=== PATIENT | male | born 1990 | race Caucasian/White ===

== ENCOUNTER 2017-02-06 12:47 | Observation (INO) | payer SELFPAY ==
[2017-02-06] MEDS ORDERED: Sodium Chloride 0.9% 10 ML Syringe FLUSH PRN (13:11)
[2017-02-06] MEDS ORDERED: Clindamycin Phosphate 900 MG in Sodium Chloride 0.9% 100 ML IV ONE (13:39)
[2017-02-06] MEDS ORDERED: Ciprofloxacin in D5W 400 MG in Premix Bag 1 BAG IV ONE ×2 (13:42)
[2017-02-06 13:59] LABS: CHLORIDE,CL 104 mmol/L (98-107); SODIUM,NA 141 mmol/L (136-145)
[2017-02-06] MEDS ORDERED: HYDROmorphone 1 MG/ML Syringe IVPUSH ONE (14:55)
[2017-02-06] MEDS ORDERED: Sodium Chloride 0.9% 1,000 ML IV ONE (16:18)
[2017-02-06] MEDS: Acetaminophen/HYDROcodone 325-10 MG Tab PO PRN ×2 (18:23→23:48)
--- NOTE | 2017-02-06 18:30 | ER ---
Date of Service: 02/06/2017 This may be used as the patient's admission H and P. SUBJECTIVE: Sergio presents to the emergency room with complaints of pain and swelling to the right side of his face. The patient states that he attempted to remove or open a small abscess or lesion to his right lower inferior mandible and states that since that time he has been experiencing gradual increase in pain and edema to the area. He states that initially again it was located on the right lower mandibular area, but now extends into his right anterior lateral neck and up into his right cheek area and extending into the right nasolabial fold. He states that he is not experiencing any chest pain or shortness of breath and states that he is able to swallow without difficulty. He does complain of some increased trismus due to discomfort. The patient states that he has no history of MRSA. He states that his mother told he had a "cardiac arrest" when he was given Augmentin as an infant. PAST MEDICAL HISTORY: Denies. MEDICATIONS: None. ALLERGIES: To Augmentin. REVIEW OF SYSTEMS: General: Denies any significant fever or chills. HEENT: Please see history of present illness. No difficulties with swallowing or managing his secretions. Respiratory: No shortness of breath. Cardiac: Denies any substernal chest pain. No jaw, arm, neck, or back pain. GI: No nausea, vomiting, or diarrhea. No melena, hematochezia, or hematemesis. : Denies any dysuria. Musculoskeletal: No myalgias or arthralgias. Neurologic: No fainting, blackouts, or lightheadedness. Denies any numbness or tingling in his extremities. PHYSICAL EXAMINATION: General: This is a 26-year-old male patient, who is in mild to moderate amount of distress. Vital Signs: Heart rate is 104, temp is 36.8, blood pressure is 140/65, respiratory rate is 16, O2 saturations 100% on room air. Skin: Warm, pink, and dry. HEENT: Head is normocephalic, atraumatic. Eyes, PERRLA. Extraocular movements are intact. Ears, TMs are clear. Face, he does have evidence of swelling to the right side of his face. The largest portion of the lesion is located in the area of the body of the right mandible anterior to the mandibular arch. There is some open areas where the patient has been attempting to express material from the lesion. The edema extends up into his right buccal area to approximately the level of the right nasolabial fold. There is a scant small amount of edema extending into the right anterior lateral neck with some mild cellulitis. Examination of the patient's hypopharynx does not reveal any retropharyngeal swelling or swelling to the tongue or oral mucosa. There does appear to be some induration of the platysma particularly on the right. Neck: He does have prominent anterior and posterior cervical lymph nodes on the right. Lungs: Clear to auscultation. Heart: Regular rate and rhythm. Abdomen: Soft, nontender. There is no hepatosplenomegaly noted. There are no masses noted. Extremities: Without edema. Neurologic: The patient is alert, oriented, answers all questions appropriately. His speech is fluent. His gait is within normal limits. I. LABORATORY DATA: WBC is 12.6, hemoglobin is 16.1. Coags; PT is 10.3 and INR is 1.0. Chemistry; sodium is 141, potassium is 4.5, chloride is 104, bicarb is 29, BUN is 14, creatinine is 1.1, creatinine clearance is 94.67. GFR is greater than 60. Glucose is 81, calcium is 9.2, corrected calcium is 9.28, total protein is 0.5. AST is 12, ALT is 18, AST is 74. C-reactive protein is 2.4, total protein is 7.6, albumin is 3.9. Blood cultures x2 were obtained and are pending. Also culture was taken of the mandibular lesion and results are pending. CT scan of the patient's soft tissue of his neck was obtained. 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 Kumar, the Radiologist at [facility]. EMERGENCY ROOM COURSE: IV access was established. He was given a liter of normal saline IV. I did consult with Dr. Vines, who was the Infectious Disease specialist on-call at [facility] in [place]. Given the patient's allergy to Augmentin, he advised starting the patient on vancomycin, clindamycin, and Cipro. Subsequently, the patient was started on vancomycin 1250 mg every 8 hours and clindamycin 900 mg every 8 hours. Also started him on Cipro 400 mg every 12 hours. He was given Dilaudid 1 mg IV. There was no expressible material coming from the abscess on initial examination. Subsequently, the abscess in the mandibular area was prepped and draped in the usual sterile fashion. The skin was cleansed with chlorhexidine. The skin was subsequently anesthetized with a total of 2 mL of 1% lidocaine. A #11 blade scalpel was used to make a small incision and approximately 10-15 mL of brown, foul-smelling purulent liquid was expressed from the abscess. The patient did tolerate this well. He remained stable in my care in the emergency room. To note, he was feeling somewhat nauseated, so he was also given Zofran 4 mg IV. ASSESSMENT: Cellulitis and abscess to right mandibular area with involvement of the submandibular platysma. PLAN: I did speak with Dr. Wiley, Ear, Nose, and Throat Specialist. He did review the images and felt that the patient could be admitted to our facility for IV antibiotics. Again we will have him start vancomycin dosed by the our pharmacy. Likely the dosage will be 1250 mg q.8 hours. Also will be clindamycin 900 mg every 8 hours and ciprofloxacin 400 mg twice daily. We will keep him on normal saline at 125 an hour. We will keep him on a mechanical soft diet. [place] 10/325 every 4 to 6 hours as needed for pain. Zofran 4 mg every 8 hours for nausea. We will re-evaluate often for involvement of the retropharyngeal area and problems with swallowing or managing his secretions which at this point, he is not having any issues with. The patient is a code level 1. MWK: 02/06/2017 17:18:00 MODL: 02/06/2017 18:22:30 /[id number]
[2017-02-06] MEDS: Nicotine 21 MG/24 Hr Patch TRDERM SCH (21:06)
[2017-02-06] MEDS ORDERED: Ondansetron 4 MG/2 ML SDV IVPUSH PRN (23:00)
[2017-02-06] MEDS: Clindamycin Phosphate 900 MG in Sodium Chloride 0.9% 100 ML IV SCH (23:51)
[2017-02-07] MEDS: Ciprofloxacin in D5W 400 MG in Premix Bag 1 BAG IV SCH ×4 (04:44→14:02)
[2017-02-07] MEDS: Clindamycin Phosphate 900 MG in Sodium Chloride 0.9% 100 ML IV SCH ×4 (04:47→23:05)
[2017-02-07] MEDS: Acetaminophen/HYDROcodone 325-10 MG Tab PO PRN ×4 (06:14→21:48)
[2017-02-07] MEDS: Sodium Chloride 0.9% 1,000 ML IV SCH ×2 (06:43→14:45)
[2017-02-07 07:11] LABS: CHLORIDE,CL 106 mmol/L (98-107); SODIUM,NA 141 mmol/L (136-145)
[2017-02-07] MEDS: Nicotine 21 MG/24 Hr Patch TRDERM SCH (08:59)
--- NOTE | 2017-02-07 11:42 | PCM.PN ---
- General Info Date of Service: 02/07/17 Admission Dx/Problem (Free Text): Patient admitted yesterday by Martínez Newman PA-c for IV antibiotic treatment for right mandibular abscess. Subjective Update: Patient reports feeling the same. States the swelling in his face initially got better, but has returned to where it was prior. Pain is better controlled. Functional Status: Reports: Pain Controlled, Tolerating Diet, Ambulating - Review of Systems General: Reports: No Symptoms HEENT: Reports: No Symptoms Pulmonary: Reports: No Symptoms Cardiovascular: Reports: No Symptoms Gastrointestinal: Reports: No Symptoms Genitourinary: Reports: No Symptoms Musculoskeletal: Reports: No Symptoms Skin: Reports: No Symptoms Neurological: Reports: No Symptoms Psychiatric: Reports: No Symptoms - Patient Data Vitals - Most Recent: Last Vital Signs Temp 37.2 C 02/07/17 10:00 Pulse 66 02/07/17 10:00 Resp 16 02/07/17 10:00 BP 115/57 L 02/07/17 10:00 Pulse Ox 100 02/07/17 10:00 Weight - Most Recent: 64.773 kg I&O - Last 24 Hours: Intake & Output 02/06/17 02/07/17 02/07/17 22:59 06:59 14:59 Intake Total 1963 1240 360 Balance 1963 1240 360 Lab Results Last 24 Hours: Laboratory Results - last 24 hr 02/07/17 02/07/17 Range/Units 06:26 06:26 WBC 8.7 (4.0-10.0) x10^3/uL RBC 4.55 (4.5-6.0) x10^6/uL Hgb 13.7 L D (14.0-18.0) g/dL Hct 40.7 (40.0-52.0) % MCV 89.5 D (78.0-93.0) fL MCH 30.1 (26.0-32.0) pg MCHC 33.7 (32.0-36.0) g/dL RDW Coeff of Michelle 14.2 (10.0-15.0) % Plt Count 261 (130-400) x10^3/uL Neut % (Auto) 55.7 (50.0-80.0) % Lymph % (Auto) 25.8 (25.0-50.0) % [place] % (Auto) 13.5 H (2.0-11.0) % Eos % (Auto) 4.0 (0.0-4.0) % Baso % (Auto) 1.0 (0.2-1.2) % Sodium 141 (136-145) mmol/L Potassium 4.6 (3.5-5.1) mmol/L Chloride 106 (98-107) mmol/L Carbon Dioxide 31 (21-32) mmol/L BUN 13 (7-18) mg/dL Creatinine 0.9 (0.70-1.30) mg/dL Est Cr Clr Drug Dosing 113.95 mL/min Estimated GFR (MDRD) > 60 Glucose 85 (74-106) mg/dL Calcium 8.1 L (8.5-10.1) mg/dL Corrected Calcium 8.90 (8.5-10.1) mg/dL Total Bilirubin 0.4 (0.2-1.0) mg/dL AST 23 (15-37) U/L ALT 30 (16-63) U/L Alkaline Phosphatase 65 (46-116) U/L C-Reactive Protein 3.3 H (<=0.9) mg/dL Total Protein 6.2 L (6.4-8.2) g/dL Albumin 3.0 L (3.4-5.0) g/dL Globulin 3.2 Albumin/Globulin Ratio 0.94 Med Orders - Current: Current Medications Hydrocodone Bitart/Acetaminophen ([place] 325-10 Mg) 1 tab PO Q4H PRN PRN Reason: Pain Last Admin: 02/07/17 11:19 Dose: 1 tab Ciprofloxacin/Dextrose 400 mg/ (Premix) 200 mls @ 200 mls/hr IV Q12H [facility] Last Admin: 02/07/17 04:44 Dose: 200 mls/hr Sodium Chloride (Normal Saline) 1,000 mls @ 125 mls/hr IV ASDIRECTED [facility] Last Admin: 02/07/17 06:43 Dose: 125 mls/hr Clindamycin Phosphate 900 mg/ (Sodium Chloride) 106 mls @ 200 mls/hr IV Q8HR [facility] Last Admin: 02/07/17 07:45 Dose: 200 mls/hr Vancomycin HCl 1,250 mg/ (Sodium Chloride) 250 mls @ 200 mls/hr IV Q8H [facility] Last Admin: 02/07/17 08:57 Dose: 200 mls/hr Nicotine (Habitrol) 21 mg TRDERM DAILY [facility] Last Admin: 02/07/17 08:59 Dose: Not Given Ondansetron HCl (Zofran) 4 mg IVPUSH Q8H PRN PRN Reason: Nausea Sodium Chloride (Saline Flush) 10 ml FLUSH ASDIRECTED PRN PRN Reason: Keep Vein Open Discontinued Medications Hydromorphone HCl (Dilaudid) 1 mg IVPUSH ONETIME ONE Stop: 02/06/17 14:56 Last Admin: 02/06/17 15:03 Dose: 1 mg Clindamycin Phosphate 900 mg/ (Sodium Chloride) 106 mls @ 200 mls/hr IV ONETIME ONE Stop: 02/06/17 14:10 Last Admin: 02/06/17 14:27 Dose: 200 mls/hr Vancomycin HCl 1,250 mg/ (Sodium Chloride) 250 mls @ 200 mls/hr IV ONETIME ONE Stop: 02/06/17 14:53 Last Admin: 02/06/17 15:09 Dose: 200 mls/hr Ciprofloxacin/Dextrose 400 mg/ (Premix) 200 mls @ 200 mls/hr IV ONETIME ONE Stop: 02/06/17 14:41 Last Admin: 02/06/17 16:54 Dose: 200 mls/hr Vancomycin HCl 1,250 mg/ (Sodium Chloride) 250 mls @ 200 mls/hr IV Q8HR [facility] Vancomycin HCl 1,250 mg/ (Sodium Chloride) 250 mls @ 200 mls/hr IV Q8H [facility] Last Admin: 02/07/17 04:46 Dose: 200 mls/hr Clindamycin Phosphate 900 mg/ (Sodium Chloride) 106 mls @ 200 mls/hr IV Q8HR [facility] Last Admin: 02/07/17 04:47 Dose: 200 mls/hr Sodium Chloride (Normal Saline) 1,000 mls @ 1,000 mls/hr IV .BOLUS ONE Stop: 02/06/17 17:17 Last Admin: 02/06/17 18:24 Dose: 1,000 mls/hr Lidocaine HCl (Xylocaine-Mpf 1%) 5 ml INJECT ONETIME ONE Stop: 02/06/17 13:14 Last Admin: 02/06/17 14:37 Dose: 5 ml - Exam General: Alert, Oriented, Cooperative HEENT: Pupils Equal, Pupils Reactive, EOMI Neck: Other (neck is edematous with cellulitis noted. bandaging is dry and intact) Lungs: Clear to Auscultation, Normal Respiratory Effort Cardiovascular: Regular Rate, Regular Rhythm GI/Abdominal Exam: Normal Bowel Sounds, Soft, Non-Tender, No Distention Extremities: Normal Inspection, Normal Range of Motion, Non-Tender, No Pedal Edema, Normal Capillary Refill Skin: Warm, Dry, Intact Wound/Incisions: Healing Well Neurological: No New Focal Deficit Psy/Mental Status: Alert, Normal Affect, Normal Mood - Problem List & Annotations (1) Cellulitis and abscess of face SNOMED Code(s): 598840311 Code(s): L03.211 - CELLULITIS OF FACE; L02.01 - CUTANEOUS ABSCESS OF FACE Status: Acute Priority: Medium Current Visit: Yes - Problem List Review Problem List Initiated/Reviewed/Updated: Yes - Assessment Assessment:: cellulities and abscess of right mandible - Plan Plan:: Continue IV antibiotic regimen of vancomycin, clindamycin, and ciprofloxacin until culture susceptibility is final, then narrow antibiotic regimen
[2017-02-08] MEDS: Ciprofloxacin in D5W 400 MG in Premix Bag 1 BAG IV SCH ×2 (02:01)
[2017-02-08] MEDS: Acetaminophen/HYDROcodone 325-10 MG Tab PO PRN ×3 (02:12→10:42)
[2017-02-08] MEDS: Clindamycin Phosphate 900 MG in Sodium Chloride 0.9% 100 ML IV SCH (07:36)
[2017-02-08] MEDS: Nicotine 21 MG/24 Hr Patch TRDERM SCH (07:36)
[2017-02-08 07:55] LABS: CHLORIDE,CL 104 mmol/L (98-107); SODIUM,NA 140 mmol/L (136-145)
--- NOTE | 2017-02-08 08:52 | PCM.DCSUM1 ---
Discharge Summary - Hospital Course HPI Initial Comments: Patient was admitted 2 days ago to the observation unit at [facility] for a right inferior mandibular skin abscess. Patient was placed on IV antibiotics given the extent of the skin abscess - Discharge Data Discharge Date: 02/08/17 Discharge Disposition: Home, Self-Care 01 Condition: Good - Discharge Diagnosis/Problem(s) (1) Cellulitis and abscess of face SNOMED Code(s): 119840436 ICD Code: L03.211 - CELLULITIS OF FACE; L02.01 - CUTANEOUS ABSCESS OF FACE Status: Acute Priority: Medium Current Visit: Yes Onset Date: ~02/06/17 - Patient Summary/Data Operative Procedure(s) Performed: None Labs Pending at D/C: None Hospital Course: Patient did well during his observation stay. The patient remained hemodynamically stable and afebrile. The patient tolerated IV antibiotics without any problem. The right posterior mandibular skin abscess is healing well. The iodoform gauze packing was removed today. We will leave this out and let the abscess drain on its own. The patient did not have any trouble with eating or drinking. The patient is urinating without any problems. No issues with bowel movements. The patient is ambulating without any assistance. - Patient Instructions Diet: Regular Diet as Tolerated Activity: No Strenuous Activities, Rest and Relax Today Driving: May Drive Today Showering/Bathing: May Shower Wound/Incision Care: Keep Operative Site/Wound Site Clean and Dry, Change Dressing Daily Notify Provider of: Fever, Increased Pain, Drainage - Discharge Plan Prescriptions/Med Rec: Ciprofloxacin HCl [Cipro] 500 mg PO BID 10 Days #20 tablet Clindamycin HCl 300 mg PO TID 10 Days #30 capsule Home Medications: Home Meds Ciprofloxacin HCl [Cipro] 500 mg PO BID 10 Days #20 tablet 02/08/17 [Rx] Clindamycin HCl 300 mg PO TID 10 Days #30 capsule 02/08/17 [Rx] Patient Handouts: Abscess - Discharge Summary/Plan Comment DC Time >30 min.: No Discharge Summary/Plan Comment: 26-year-old male patient admitted to the observation unit for a right inferior mandibular skin abscess. The patient did well on his observation stay. The patient tolerated IV antibiotics without any problems. The patient will be discharged home today. I recommend that the patient began to daily dressing changes to the affected site and also as needed. The patient will be sent home on clindamycin 300 mg by mouth 3 times a day for 10 days. I will also continue the ciprofloxacin 500 mg twice a day for 10 days. The patient may shower as usual. Nursing staff to instruct patient on dressing changes. I would like the patient to follow-up at the [facility] in 7 days. - General Info Date of Service: 02/08/17 Admission Dx/Problem (Free Text: Patient admitted yesterday by Martínez Newman PA-c for IV antibiotic treatment for right mandibular abscess. Subjective Update: Patient reports feeling the same. States the swelling in his face initially got better, but has returned to where it was prior. Pain is better controlled. Functional Status: Reports: Pain Controlled, Tolerating Diet, Ambulating, Urinating - Review of Systems General: Reports: No Symptoms. Denies: Fever, Weakness Pulmonary: Denies: Shortness of Breath, Sputum Cardiovascular: Denies: Chest Pain, Palpitations Skin: Reports: Other (right lower jaw pain and swelling) Neurological: Reports: No Symptoms. Denies: Headache, Numbness, Paresthesia, Tingling - Patient Data Vitals - Most Recent: Last Vital Signs Temp 36.8 C 02/08/17 04:50 Pulse 99 02/08/17 04:50 Resp 16 02/08/17 04:50 BP 125/62 02/08/17 04:50 Pulse Ox 99 02/08/17 04:50 Weight - Most Recent: 64.773 kg I&O - Last 24 hours: Intake & Output 02/07/17 02/08/17 02/08/17 22:59 06:59 14:59 Intake Total 2070 1820 240 Balance 2070 1820 240 Lab Results - Last 24 hrs: Laboratory Results - last 24 hr 02/07/17 02/08/17 02/08/17 Range/Units 16:02 07:33 07:33 WBC 6.0 (4.0-10.0) x10^3/uL RBC 4.67 (4.5-6.0) x10^6/uL Hgb 14.1 (14.0-18.0) g/dL Hct 41.3 (40.0-52.0) % MCV 88.4 (78.0-93.0) fL MCH 30.2 (26.0-32.0) pg MCHC 34.1 (32.0-36.0) g/dL RDW Coeff of [place] 14.1 (10.0-15.0) % Plt Count 257 (130-400) x10^3/uL Neut % (Auto) 38.8 L (50.0-80.0) % Lymph % (Auto) 42.1 (25.0-50.0) % [place] % (Auto) 10.8 (2.0-11.0) % Eos % (Auto) 6.8 H (0.0-4.0) % Baso % (Auto) 1.5 H (0.2-1.2) % Sodium 140 (136-145) mmol/L Potassium 4.3 (3.5-5.1) mmol/L Chloride 104 (98-107) mmol/L Carbon Dioxide 32 (21-32) mmol/L BUN 10 (7-18) mg/dL Creatinine 1.0 (0.70-1.30) mg/dL Est Cr Clr Drug Dosing 102.56 mL/min Estimated GFR (MDRD) > 60 Glucose 85 (74-106) mg/dL Calcium 8.3 L (8.5-10.1) mg/dL C-Reactive Protein 1.8 H (<=0.9) mg/dL Vancomycin Trough 13 H (5-10) ug/mL Med Orders - Current: Current Medications Hydrocodone Bitart/Acetaminophen ([place] 325-10 Mg) 1 tab PO Q4H PRN PRN Reason: Pain Last Admin: 02/08/17 07:37 Dose: 1 tab Ciprofloxacin/Dextrose 400 mg/ (Premix) 200 mls @ 200 mls/hr IV Q12H [facility] Last Admin: 02/08/17 02:01 Dose: 200 mls/hr Sodium Chloride (Normal Saline) 1,000 mls @ 125 mls/hr IV ASDIRECTED [facility] Last Admin: 02/07/17 14:45 Dose: 125 mls/hr Clindamycin Phosphate 900 mg/ (Sodium Chloride) 106 mls @ 200 mls/hr IV Q8HR [facility] Last Admin: 02/08/17 07:36 Dose: 200 mls/hr Vancomycin HCl 1,250 mg/ (Sodium Chloride) 250 mls @ 200 mls/hr IV Q8H [facility] Last Admin: 02/07/17 23:55 Dose: 200 mls/hr Nicotine (Habitrol) 21 mg TRDERM DAILY [facility] Last Admin: 02/08/17 07:36 Dose: 21 mg Ondansetron HCl (Zofran) 4 mg IVPUSH Q8H PRN PRN Reason: Nausea Sodium Chloride (Saline Flush) 10 ml FLUSH ASDIRECTED PRN PRN Reason: Keep Vein Open Vancomycin HCl (Pharmacy To Dose - Vancomycin) 1 dose .XX ASDIRECTED [facility] Discontinued Medications Hydromorphone HCl (Dilaudid) 1 mg IVPUSH ONETIME ONE Stop: 02/06/17 14:56 Last Admin: 02/06/17 15:03 Dose: 1 mg Clindamycin Phosphate 900 mg/ (Sodium Chloride) 106 mls @ 200 mls/hr IV ONETIME ONE Stop: 02/06/17 14:10 Last Admin: 02/06/17 14:27 Dose: 200 mls/hr Vancomycin HCl 1,250 mg/ (Sodium Chloride) 250 mls @ 200 mls/hr IV ONETIME ONE Stop: 02/06/17 14:53 Last Admin: 02/06/17 15:09 Dose: 200 mls/hr Ciprofloxacin/Dextrose 400 mg/ (Premix) 200 mls @ 200 mls/hr IV ONETIME ONE Stop: 02/06/17 14:41 Last Admin: 02/06/17 16:54 Dose: 200 mls/hr Vancomycin HCl 1,250 mg/ (Sodium Chloride) 250 mls @ 200 mls/hr IV Q8HR [facility] Vancomycin HCl 1,250 mg/ (Sodium Chloride) 250 mls @ 200 mls/hr IV Q8H [facility] Last Admin: 02/07/17 04:46 Dose: 200 mls/hr Clindamycin Phosphate 900 mg/ (Sodium Chloride) 106 mls @ 200 mls/hr IV Q8HR [facility] Last Admin: 02/07/17 04:47 Dose: 200 mls/hr Sodium Chloride (Normal Saline) 1,000 mls @ 1,000 mls/hr IV .BOLUS ONE Stop: 02/06/17 17:17 Last Admin: 02/06/17 18:24 Dose: 1,000 mls/hr Lidocaine HCl (Xylocaine-Mpf 1%) 5 ml INJECT ONETIME ONE Stop: 02/06/17 13:14 Last Admin: 02/06/17 14:37 Dose: 5 ml - Exam General: Reports: Alert, Oriented Neck: Reports: Supple Lungs: Reports: Clear to Auscultation, Normal Respiratory Effort Cardiovascular: Reports: Regular Rate, Regular Rhythm, No Murmurs Skin: Reports: Warm, Dry Wound/Incisions: Reports: Healing Well, Dressing Dry and Intact, Drainage, Erythema Improving Neurological: Reports: No New Focal Deficit *Q Meaningful Use (DIS) - VTE *Q VTE Criteria *Q: NONE - Stroke *Q Stroke Criteria *Q: - AMI *Q AMI Criteria *Q:
[2017-02-08 10:04] VITALS: BP 106/50
== END 2017-02-08 10:40 | disposition home or self-care (01) ==
LOC: VM.ED 12:47 → VM.MS 15:36
PROVIDERS: ADMIT Physician Assistant; ATTEND Physician Assistant
DX: L03.211 Cellulitis of face (principal); Z88.1 Allergy status to other antibiotic agents; Z79.2 Long term (current) use of antibiotics; Z79.899 Other long term (current) drug therapy
CPT/HCPCS: 10060; 36415; 70491; 80048; 80053; 80202; 85025; 85610; 86140; 87040; 87070; 87077; 96361; 96365; 96366; 96367; 96375; 96376; 99285; A9270; G0378; J0744; J1170; J3370; J7030; J7050; 87147; 87184; 87186; 99217; 99220; 99225; S0077